=== PATIENT | male | born 1960 | race Hispanic/Latino ===

== ENCOUNTER 2023-10-23 17:44 | Emergency (ER) | payer MEDICARE ==
[2023-10-23 18:48] LABS: Hematocrit 27.9 % (38.8-50.0); Hemoglobin 8.8 g/dL (13.5-17.5); Mean Corpuscular HGB CONC 31.5 g/dL (32.0-36.0); Mean Corpuscular Hemoglobin 26.7 pg (27.0-33.0); Mean Corpuscular Volume 84.5 fl (81.2-95.1); Mean Platelet Volume 11.5 fl (7.4-10.4); Platelet Count 76 10x3/uL (150-450); RBC Distribution Width 16.9 % (11.5-14.5); White Blood Cell (WBC) Count 3.3 10x3/uL (3.5-10.5)
[2023-10-23 18:57] LABS: ALT (SGPT) 19 U/L (8-55); AST (SGOT) 20 U/L (5-34); Alkaline Phosphatase 149 U/L (40-110); Anion Gap 16 mmol/L (10-20); BUN (Urea Nitrogen) 77 mg/dL (8.4-25.7); Bilirubin, Total 0.2 mg/dL (0.2-1.2); Calc. Creatinine Clearance 0 mL/min (70-130); Calcium 8.5 mg/dL (7.8-10.44); Carbon Dioxide 15 mmol/L (23-31); Chloride 115 mmol/L (98-107); Estimated GFR 17; Globulin 2.7 g/dL (2.4-3.5); Glucose 383 mg/dL (80-115); Lipase 192 U/L (8-78); Protein, Total 5.7 g/dL (5.8-8.1); Sodium 139 mmol/L (136-145)
[2023-10-23 18:58] LABS: Potassium 6.7 mmol/L (3.5-5.1)
[2023-10-23 18:59] LABS: Troponin I 0.018 ng/mL (< 0.028)
[2023-10-23 19:16] LABS: #Eosinphils 0.1 10x3/uL (0.0-0.5); #Monocytes 0.2 10x3/uL (0.0-1.1); %Basophils 0.3 % (0.0-2.0); %Eosinophils 1.5 % (0.0-6.0); %Lymphocytes 32.7 % (18.0-47.0); %Monocytes 5.2 % (0.0-10.0)
[2023-10-23 19:21] LABS: Anisocytosis SLIGHT = 6-15 cells (100X) (0-5/hpf); Microcytosis SLIGHT = 6-15 cells (100X) (0-5/hpf)
[2023-10-23 19:22] LABS: Burr Cells SLIGHT = 2-5 cells (100X) (0-1/hpf); Ovalocytes SLIGHT = 2-5 cells (100X) (0-1/hpf); Schistocytes SLIGHT = 2-5 cells (100X) (0-1/hpf)
[2023-10-23 19:23] LABS: Platelet Adequacy Comment Appears Decreased
[2023-10-23] MEDS ORDERED: Furosemide 40 MG (4 mL) VIAL ONE (19:37)
[2023-10-23] MEDS ORDERED: Calcium Chloride 1 GM/10 ML Abboject SYRINGE ONE (19:50)
[2023-10-23] MEDS ORDERED: Calcium Gluc 4.6 MEQ/10 ML (100 MG/ML) ONE (19:52)
[2023-10-23] MEDS ORDERED: Insulin Regular 300 UNITS/3 ML VIAL IVP SCH (20:15)
[2023-10-23] MEDS ORDERED: LOKELMA 10 GM PACKET PO SCH (21:15)
[2023-10-23] MEDS ORDERED: Sodium Bicarb 50 mEq/50 ML VIAL ONE (21:22)
[2023-10-23 22:29] LABS: Anion Gap 17 mmol/L (10-20); BUN (Urea Nitrogen) 76 mg/dL (8.4-25.7); Calc. Creatinine Clearance 0 mL/min (70-130); Calcium 8.7 mg/dL (7.8-10.44); Carbon Dioxide 16 mmol/L (23-31); Chloride 117 mmol/L (98-107); Estimated GFR 17; Glucose 234 mg/dL (80-115); Sodium 143 mmol/L (136-145)
[2023-10-23 22:36] LABS: Potassium 6.5 mmol/L (3.5-5.1)
[2023-10-24 02:03] LABS: Anion Gap 17 mmol/L (10-20); BUN (Urea Nitrogen) 77 mg/dL (8.4-25.7); Calc. Creatinine Clearance 0 mL/min (70-130); Calcium 8.6 mg/dL (7.8-10.44); Carbon Dioxide 14 mmol/L (23-31); Chloride 117 mmol/L (98-107); Estimated GFR 17; Glucose 178 mg/dL (80-115); Sodium 141 mmol/L (136-145)
[2023-10-24 02:07] LABS: Critical Call Chemistry NUR.AEB @ 0207; Potassium 6.5 mmol/L (3.5-5.1)
[2023-10-24] MEDS ORDERED: Furosemide 40 MG (4 mL) VIAL ONE (02:08)
[2023-10-24] MEDS ORDERED: Sodium Polystyrene Sulfonate 15 GM (60 mL) BOT ONE (02:59)
[2023-10-24] MEDS ORDERED: Sodium Bicarb 50 mEq/50 ML VIAL ONE (02:59)
[2023-10-24] MEDS ORDERED: Dextrose 50% Abboject 50 ML SYRINGE ONE (03:00)
[2023-10-24] MEDS ORDERED: LOKELMA 10 GM PACKET PO SCH (09:00)
== END 2023-10-24 03:49 | disposition short-term general hospital (02) ==
LOC: CSHERS 17:44
DX: E87.5 Hyperkalemia (principal); N18.9 Chronic kidney disease, unspecified; E87.70 Fluid overload, unspecified; E11.9 Type 2 diabetes mellitus without complications; Z94.0 Kidney transplant status
CPT/HCPCS: 71045; 76775; 80048 ×2; 80053; 82962; 83690; 83735; 83880; 84132; 84484; 85025; 93005; J0612; 36415; 36416; 51702; 96374; 96375; 96376; J1815; J1940; J7999

== ENCOUNTER 2024-03-14 18:03 | Emergency (ER) | payer MEDICARE, MEDICAID ==
[2024-03-14 18:59] LABS: #Basophils 0.03 10x3/uL (0.0-0.2); #Eosinphils 0.22 10x3/uL (0.0-0.5); #Monocytes 0.38 10x3/uL (0.0-1.1); #Neutrophils 3.79 10x3/uL (1.5-8.4); %Basophils 0.5 % (0.0-2.0); %Eosinophils 3.6 % (0.0-6.0); %Lymphocytes 26.4 % (18.0-47.0); %Monocytes 6.3 % (0.0-10.0); %Neutrophils 62.9 % (40.0-75.0); Hematocrit 36.2 % (38.8-50.0); Mean Corpuscular HGB CONC 33.1 g/dL (32.0-36.0); Mean Corpuscular Hemoglobin 28.2 pg (27.0-33.0); Mean Corpuscular Volume 85.2 fL (81.2-95.1); Mean Platelet Volume 9.3 fL (7.4-10.4); Platelet Count 150 10x3/uL (150-450); RBC Distribution Width 15.4 % (11.5-14.5); Red Blood Cell (RBC) Count 4.25 10x6/uL (4.32-5.72)
[2024-03-14 19:03] LABS: Influenza A by NAA Not Detected (NotDetected); Influenza B by NAA Not Detected (NotDetected); SARS-CoV-2 NAA Rapid Test Not Detected (NotDetected)
[2024-03-14 19:09] LABS: INR-International Normal Ratio 1.1; PTT 29.7 sec (22.0-33.0); Prothrombin Time 11.6 sec (9.5-12.1)
[2024-03-14 19:11] LABS: ALT (SGPT) 15 U/L (8-55); AST (SGOT) 34 U/L (5-34); Albumin 1.8 g/dL (3.4-4.8); Alkaline Phosphatase 127 U/L (40-110); Anion Gap 14 mmol/L (10-20); BUN (Urea Nitrogen) 28 mg/dL (8.4-25.7); Bilirubin, Total 0.2 mg/dL (0.2-1.2); Calc. Creatinine Clearance 0 mL/min (70-130); Calcium 8.7 mg/dL (7.8-10.44); Carbon Dioxide 26 mmol/L (23-31); Chloride 99 mmol/L (98-107); Estimated GFR 22; Globulin 4.6 g/dL (2.4-3.5); Glucose 153 mg/dL (80-115); Potassium 3.7 mmol/L (3.5-5.1); Protein, Total 6.4 g/dL (5.8-8.1); Sodium 135 mmol/L (136-145)
[2024-03-14] MEDS ORDERED: cefTRIAXone (ROCEPHIN) 2 GM VIAL ONE (19:31)
[2024-03-15] MEDS ORDERED: Lidocaine 2% 6 ML (Jelly) SYR ONE (01:21)
[2024-03-15 02:50] LABS: Bilirubin Neg (Negative); Blood, Urine 25 (Negative); Glucose, Urine (Dipstick) 250 mg/dL (Negative); Ketone, Urine Negative (Negative); Nitrite Negative (Negative); Protein, Urine (Dipstick) 500 mg/dl (Neg-Trace); Specific Gravity, Urine 1.015 (1.005-1.030); Urobilinogen Normal mg/dL (Less than 2); pH, Urine 6.5 (5.0-9.0)
[2024-03-15 03:01] LABS: Clarity Slightly Cloudy (Clear); Leukocyte 100 (Negative)
[2024-03-15 03:02] LABS: Bacteria/HPF 2+ HPF (None Seen); CAUTI Indications for Culture Dysuria,urgency,freq; Squamous Epithelial None Seen HPF (0-3)
[2024-03-15 03:03] LABS: Urine Culture Reflex No No
== END 2024-03-15 03:21 ==
LOC: CSHERS 18:03
DX: B34.9 Viral infection, unspecified (principal); I13.2 Hypertensive heart and chronic kidney disease with heart failure and with stage 5 chronic kidney disease, or end stage renal disease; E11.22 Type 2 diabetes mellitus with diabetic chronic kidney disease; N18.6 End stage renal disease; I50.9 Heart failure, unspecified; Z99.2 Dependence on renal dialysis; Z79.899 Other long term (current) drug therapy; Z79.4 Long term (current) use of insulin; Z79.02 Long term (current) use of antithrombotics/antiplatelets
CPT/HCPCS: 0240U; 51701; 71045; 80053; 81001; 82962; 83605; 85025; 85610; 85730; 87040; 87149 ×2; 96361; 96374; 99284; J0696; 36415; 36416